=== PATIENT | female | born 1955 | race Caucasian/White ===

== ENCOUNTER 2016-07-19 11:01 | Emergency (ER) | payer OTHER ==
[2016-07-19] MEDS ORDERED: OXYCODONE/APAP 5/325 TAB PO ONE ×2 (11:32→12:28)
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
[2016-07-19 13:54] VITALS: BP 107/81; PULSE 62; RESP 20; TEMP 97.5; O2SAT 94
== END 2016-07-19 13:53 | disposition home or self-care (01) ==
DX: S19.9XXA Unspecified injury of neck, initial encounter (principal); S29.9XXA Unspecified injury of thorax, initial encounter; V46.5XXA Car driver injured in collision with other nonmotor vehicle in traffic accident, initial encounter; Y92.410 Unspecified street and highway as the place of occurrence of the external cause

== ENCOUNTER → 2018-04-16 | Outpatient (CLI) | payer OTHER | LOC: FIMAGING 06:44 | DX: M99.73 Connective tissue and disc stenosis of intervertebral foramina of lumbar region (principal); M89.38 Hypertrophy of bone, other site; M50.30 Other cervical disc degeneration, unspecified cervical region ==

== ENCOUNTER → 2018-07-08 | Outpatient (CLI) | payer OTHER | LOC: FIMAGING 08:19 | PROVIDERS: ATTEND Family Medicine | DX: Z12.31 Encounter for screening mammogram for malignant neoplasm of breast (principal); Z13.820 Encounter for screening for osteoporosis; M81.0 Age-related osteoporosis without current pathological fracture; R22.31 Localized swelling, mass and lump, right upper limb ==

== ENCOUNTER → 2018-08-25 | Outpatient (CLI) | payer OTHER | LOC: FIMAGING 11:07 | PROVIDERS: ATTEND Family Medicine | DX: M17.11 Unilateral primary osteoarthritis, right knee (principal) ==

== ENCOUNTER → 2018-09-06 | Outpatient (CLI) | payer OTHER | LOC: FIMAGING 10:53 ==